=== PATIENT | female | born 1990 | race Two or more races ===

== ENCOUNTER 2016-09-01 17:22 | Emergency (ER) | payer MEDICAID ==
[~2016-09-01] VITALS: Ht 157.5 cm; Wt 64.0 kg
[2016-09-01 17:25] VITALS: BP 142/94
[2016-09-01] MEDS ORDERED: ALBUTEROL SULF 2.5 MG/0.5ML(0.5%) NEB SOLN NEB ONE (21:45)
[2016-09-01] MEDS ORDERED: IPRATROPIUM BROM 0.5 MG/2.5ML INH SOL NEB ONE (21:45)
[2016-09-01] MEDS ORDERED: IBUPROFEN 600 MG TAB PO ONE (22:00)
== END 2016-09-01 23:10 | disposition home or self-care (01) ==
LOC: ER 17:33
DX: J32.9 Chronic sinusitis, unspecified (principal); R51 Headache; R05 Cough
CPT/HCPCS: 94640

== ENCOUNTER 2017-07-27 10:28 | Emergency (ER) | payer MEDICAID ==
[~2017-07-27] VITALS: Ht 157.5 cm; Wt 65.8 kg
[2017-07-27 10:40] VITALS: BP 137/98
[2017-07-27] MEDS ORDERED: KETOROLAC TROMETH 60MG/2ML VIAL IM ONE (12:45)
== END 2017-07-27 13:13 | disposition home or self-care (01) ==
LOC: ER 10:33
DX: K08.89 Other specified disorders of teeth and supporting structures (principal); Z88.1 Allergy status to other antibiotic agents
CPT/HCPCS: 96372; 99283; J1885

== ENCOUNTER 2019-05-07 07:15 | Inpatient (IN) | payer OTHER, MEDICAID ==
[~2019-05-07] VITALS: Ht 157.5 cm; Wt 83.0 kg
[2019-05-07] MEDS ORDERED: LACTATED RINGER'S 1,000 ML IV SCH (09:05)
[2019-05-07] MEDS ORDERED: LACT. RINGERS/OXYTOCIN 20UNITS 1,000 ML IV SCH ×2 (09:05→17:29)
[2019-05-07 09:11] LABS: Urine Bacteria FEW /hpf (None Seen); Urine Blood 2+ /uL (Negative); Urine Specific Gravity 1.002 (1.001-1.035); Urine WBC 3 /hpf (0 - 5)
[2019-05-07] MEDS ORDERED: LIDOCAINE 2%HCL (LOCAL ANESTH.) INJ 20ML MDV ID PRN (09:15)
[2019-05-07] MEDS ORDERED: PHISODERM TOP SOLN 240ML BTL TOP PRN (09:15)
[2019-05-07] MEDS ORDERED: METHYLERGONOVINE MALEATE 0.2 MG/ML AMP IM PRN (09:15)
[2019-05-07] MEDS ORDERED: DERMOPLAST 60ML BOTTLE TOP PRN (09:15)
[2019-05-07] MEDS ORDERED: CARBOPROST TROMETHAMINE 250 MCG/1ML VIAL IM PRN (09:15)
[2019-05-07] MEDS ORDERED: WITCH HAZEL-GLYCERIN PAD TOP PRN (09:15)
[2019-05-07 09:29] LABS: Alcohol, Urine < 3.0 mg/dL (0-5); Amphetamine Screen, Urine NEGATIVE (NEGATIVE); Barbiturate Scree,Urine NEGATIVE (NEGATIVE); Benzodiazephine Screen, Urine NEGATIVE (NEGATIVE); Cannabinoid Screen, Urine NEGATIVE (NEGATIVE); Cocaine Screen, Urine NEGATIVE (NEGATIVE); Opiate Scree,Urine NEGATIVE (NEGATIVE); Phencyclidine Screen, Urine NEGATIVE (NEGATIVE)
[2019-05-07] MEDS ORDERED: CLINDAMYCIN 900MG IV 50 ML IV SCH (09:30)
[2019-05-07] MEDS ORDERED: PROMETHAZINE HCL 25 MG/ML 1ML ONE (09:30)
[2019-05-07] MEDS: BUTORPHANOL TARTRATE 2 MG/1 ML VIAL IV PRN ×2 (09:33→10:26)
[2019-05-07 09:50] LABS: Basophils # (auto) 0.1 10 ^3/uL (0-0.2); Basophils % (auto) 0.9 % (0.0-2.0); Eosinophils # (auto) 0.1 10 ^3/uL (0-0.8); Eosinophils % (auto) 0.6 % (0.0-7.0); Hematocrit 43.5 % (36.0-46.0); Hemoglobin 15.1 g/dL (12.2-16.2); Lymphocytes # (auto) 2.3 10 ^3/uL (0.4-5.4); Mean Corpuscular Hgb Conc. 34.6 g/dL (32.0-36.0); Mean Corpuscular Volume 89.5 fL (80.0-100.0); Monocytes # (auto) 0.8 10 ^3/uL (0-1.3); Neutrophils # (auto) 8.2 10 ^3/uL (1.6-8.6); Neutrophils % (auto) 71.5 % (37.0-80.0); Platelet Count (auto) 286 10^3/uL (140-450); Red Blood Cells 4.86 10^6/uL (4.0-5.20); Red Cell Distribution Width 14.2 % (11.8-14.3); White Blood Cell 11.5 10^3/uL (4.4-10.8)
[2019-05-07 10:11] LABS: Albumin 3.3 g/dL (3.4-5.0); BUN/Creatinine Ratio 6.7; Calcium 8.6 mg/dL (8.5-10.1); Potassium 3.5 mmol/L (3.5-5.1)
[2019-05-07 10:13] LABS: Bilirubin, Total 0.5 mg/dL (0.2-1.0); Total Protein 7.6 g/dL (6.4-8.2)
[2019-05-07 10:18] LABS: INR 0.94 (0.9-1.15); Partial Thromboplastin Time 25.2 sec (23.64-32.05)
[2019-05-07] MEDS ORDERED: miSOPROStol 100 mcg TAB ONE (10:24)
[2019-05-07] MEDS ORDERED: miSOPROStol 50 MCG per PRE-CUT 1/2 TAB SL PRN (10:45)
[2019-05-07] MEDS ORDERED: miSOPROStol 50 MCG per PRE-CUT 1/2 TAB PR PRN (10:45)
[2019-05-07] MEDS ORDERED: ACETAMINOPHEN 325 MG TAB PO PRN (11:00)
[2019-05-07] MEDS ORDERED: DIPHENOXYLATE W/ATROPINE 2.5 MG TAB PO PRN (11:00)
[2019-05-07] MEDS ORDERED: miSOPROStol 50 MCG per PRE-CUT 1/2 TAB SL ONE (11:00)
[2019-05-07] MEDS ORDERED: miSOPROStol 50 MCG per PRE-CUT 1/2 TAB PR ONE (11:00)
[2019-05-07] MEDS ORDERED: ONDANSETRON HCL 4 MG/2 ML VIAL IV PRN (11:00)
[2019-05-07] MEDS: IBUPROFEN 600 MG TAB PO PRN ×3 (11:26→23:28)
--- NOTE | 2019-05-07 11:30 | NUR ---
Ambulation: Patient OOB with standby assistance by RN. Patient ambulated to bathroom with steady gait. Patient UNable to void AT THIS TIME [facility] teaching provided with returned demonstration by patient. Clean gown provided and bed linen changed. Patient ambulated back to bed with steady gait and no distress noted.
--- NOTE | 2019-05-07 13:11 | NUR ---
patient unable to urinate, straight cath done obtained 1000 ml urine output
--- NOTE | 2019-05-07 13:24 | NUR ---
DR ROSE UPDATED ON PT STATUS WITH PT UNABLE TO URINATE AND WAS STRAIGHT CATH WITH 1000 ML URINE OUTPUT. ORDERS RECEIVED TO KEEP MONITORING AND INSERT MASCORRO CATHETER IF UNABLE TO VOID THE SECOND TIME
[2019-05-07 15:10] VITALS: BP 132/78
[2019-05-07 15:15] VITALS: BP 132/78
--- NOTE | 2019-05-07 16:00 | NUR ---
Ambulation: Patient OOB with no assistance by RN. Patient ambulated to bathroom with steady gait. Patient able to void 350mL without difficulty. [facility] teaching provided with returned demonstration by patient. Patient ambulated back to bed with steady gait and no distress noted.
[2019-05-07 19:18] VITALS: BP 114/63
[2019-05-07 23:10] VITALS: BP 112/58
[2019-05-08 03:00] VITALS: BP 90/46
[2019-05-08 06:11] LABS: RPR Non Reactive (Non Reactive)
[2019-05-08 07:06] LABS: Rubella Antibodies, IgG 4.01 index (Immune >0.99)
[2019-05-08 10:55] VITALS: BP 112/70
[2019-05-08] MEDS ORDERED: PREN-153 OR (13:28)
[2019-05-08 15:00] VITALS: BP 103/57
[2019-05-08] MEDS: IBUPROFEN 600 MG TAB PO PRN ×2 (15:45→19:52)
--- NOTE | 2019-05-08 19:00 | NUR ---
Bottle-feeding Education: Patient encouraged to breastfeed. Benefits of and the risk of providing formula to was discussed. Patient verbalized understanding of the benefits and is aware of risk and insists on bottle-feeding. Formula provided and instruction on formula preperation from the [employer] booklet reviewed with patient. Teaching: Reviewed information in [employer] Begin[employer] booklet with patient. Discussed benefits of and risks associated with not . Discussed different positions, proper latch, feeding cues, and baby-led . Provided information of medication side effects related to . All questions and concerns addressed at this time. Patient verbalized understanding of information.
[2019-05-08 19:30] VITALS: BP 115/72
[2019-05-08 23:00] VITALS: BP 114/62
[2019-05-09 03:00] VITALS: BP 106/53
[2019-05-09 07:00] VITALS: BP 126/79
--- NOTE | 2019-05-09 08:30 | NUR ---
Discharge: Discharge instructions given as ordered. Pt encouraged to follow up with PHYSICAL THERAPY TECHNICIAN as instructed. All questions and concerns addressed. Patient verbalized understanding. Medication reconciliation completed and copy given to patient. All required/requested vaccines given and copies of vaccinations given to patient. Patient encouraged to prepare to depart unit.
--- NOTE | 2019-05-09 08:30 | NUR ---
Discharge: Discharge instructions given to mother of baby as ordered. Copies of and hearing screening, along with vaccination record given to mother. Mother encouraged to follow up with Mental Tester of choice and to give envelope with infants information to room manager at 1st office visit. All questions and concerns addressed. Mother of baby verbalized understanding and agreed to comply. Mother of baby encouraged to prepare for departure and notify RN ready to leave room for ID band removal/verification and car seat check.
--- NOTE | 2019-05-09 08:48 | NUR ---
Discharge: Patient taken to vehicle ambulatory with all personal belongings, accompanied by staff and family member. No distress noted at time of departure, no adverse changes in status since initial assessment.
== END 2019-05-09 08:48 | disposition home or self-care (01) | DRG 807 ==
LOC: LDRP 07:15 → OBSVTOIN 07:15 → LDRP 10:17
PROVIDERS: ADMIT Obstetrics & Gynecology; ATTEND Obstetrics & Gynecology
PROC: 10E0XZZ Delivery of Products of Conception, External Approach (ICD-10-PCS; principal; 2019-05-08)
PROC: 0KQM0ZZ Repair Perineum Muscle, Open Approach (ICD-10-PCS; 2019-05-08)
PROC: 0W8NXZZ Division of Female Perineum, External Approach (ICD-10-PCS; 2019-05-08)
DX: O62.3 Precipitate labor (principal); Z37.0 Single live birth; Z3A.39 39 weeks gestation of pregnancy; O70.1 Second degree perineal laceration during delivery
CPT/HCPCS: 36415; 59025; 59409; 80053; 80307; 81001; 81002; 84112; 85025; 85610; 85730; 86592; 86703; 86762; 86850; 86900; 86901; 87340; 96375; G0378; J2590; J3490